=== PATIENT | male | born 1960 | race Two or more races ===

== ENCOUNTER 2018-08-29 05:39 | Day surgery (SDC) | payer OTHER ==
[~2018-08-29] VITALS: Ht 182.9 cm; Wt 97.5 kg
[2018-08-29] VITALS (10 sets, daily range): BP systolic 111–134; BP diastolic 56–90
[2018-08-29] MEDS ORDERED: oxyCONTIN 20mg tab ORAL ONE (06:00)
[2018-08-29] MEDS ORDERED: ceFAZolin 1gm IVPB IVPB ONE ×2 (06:00)
[2018-08-29] MEDS ORDERED: celeBREX 200mg Cap **SURGERY PATIENTS ONLY ORAL ONE (06:00)
[2018-08-29] MEDS ORDERED: Midazolam 2mg/2ml Inj ONE (07:43)
[2018-08-29] MEDS ORDERED: Lidocaine 1% MPF 10mg/ml 5ml ONE (07:43)
[2018-08-29] MEDS ORDERED: Ketorolac 30mg Inj ONE ×2 (07:43→08:19)
[2018-08-29] MEDS ORDERED: Propofol 200mg/20ml IV ONE (07:43)
[2018-08-29] MEDS ORDERED: fentaNYL 100 mcg/2 mL IV ONE (07:43)
[2018-08-29] MEDS ORDERED: METFORMIN HCL1000 M1 ORAL (07:54)
[2018-08-29] MEDS ORDERED: Jardiance PO (07:59)
[2018-08-29] MEDS ORDERED: BREO ELLIPTA 11 EACH IH (08:00)
[2018-08-29] MEDS ORDERED: GLIMEPIRIDE1 MG ORAL (08:00)
[2018-08-29] MEDS ORDERED: EPINEPHrine 1mg/1ml Amp ONE (08:18)
[2018-08-29] MEDS ORDERED: Morphine Sulfate PF 10 ML ONE (08:18)
[2018-08-29] MEDS ORDERED: Lidocaine 1% 10mg/ml/Epi 0.005mg/ml 30ml vial INJ ONE (08:19)
[2018-08-29] MEDS ORDERED: Kenalog-40 1ml Vial ONE (08:19)
[2018-08-29] MEDS ORDERED: Bupivacaine 0.25% Inj 30ml INJ ONE (08:19)
[2018-08-29] MEDS ORDERED: Sterile Water Irrig 1000ml IRRIG ONE (08:30)
[2018-08-29] MEDS ORDERED: NS Irrig 4000ml IRRIG ONE (08:30)
[2018-08-29] MEDS ORDERED: LR 1000ml ONE (08:30)
--- NOTE | 2018-08-29 08:35 | Pre-Procedure Note/Attestation ---
Pre-Procedure Note/Attestation Complete Prior to Procedure Planned Procedure: left Procedure Narrative: knee arthroscopy, medial menisectomy Indications for Procedure Pre-Operative Diagnosis: left knee medial meniscus tear Attestation I attest that I discussed the nature of the procedure; its benefits; risks and complications; and alternatives (and the risks and benefits of such alternatives ), prior to the procedure, with the patient (or the patient's legal medical representative). I attest that, if there was a reasonable possibility of needing a blood transfusion, the patient (or the patient's legal medical representative) was given the [facility] standardized written summary, pursuant to the [place] Blood Safety Act ([place] Health and Safety Code # 1645, as amended). I attest that I re-evaluated the patient just prior to the surgery and that there has been no change in the patient's H&P, except as documented below: Des Brown MD Aug 29, 2018 08:34
--- NOTE | 2018-08-29 08:35 | Operative Note - PDOC ---
Operative Note Operative Note Pre-op Diagnosis: left knee medial meniscus tear Procedure: see op report Post-op Diagnosis: same as pre-op plus Operative Findings: consistent w/pre-op dx studies Anesthesia: MAC Specimen: none Complications: none Condition: stable Estimated Blood Loss: none Implant(s) used?: No Des Brown MD Aug 29, 2018 08:35
[2018-08-29] MEDS ORDERED: Tylenol #3 tab (300mg/30mg) ORAL PRN (08:45)
[2018-08-29] MEDS ORDERED: D5 1/2NS 1,000 ML IV SCH (08:45)
[2018-08-29] MEDS ORDERED: Norco 5mg/325mg tab ORAL PRN (08:45)
[2018-08-29] MEDS ORDERED: HYDROmorphone 1mg/ml Carpuject SUBQ PRN (08:45)
[2018-08-29] MEDS ORDERED: LR 1000ml 1,000 ML IVLG SCH (08:59)
--- NOTE | 2018-08-29 08:59 | Anethesia Preoperative Eval ---
Anesthesia Pre-op PMH/ROS General Date of Evaluation: Aug 29, 2018 Time of Evaluation: 08:20 Anesthesiologist: Wilber ASA Score: ASA 2 Mallampati Score Class I : Soft palate, uvula, fauces, pillars visible Class II: Soft palate, uvula, fauces visible Class III: Soft palate, base of uvula visible Class IV: Only hard plate visible Mallampati Classification: Class II Surgeon: Kevin Diagnosis: L knee pain Surgical Procedure: L knee scope Anesthesia History: none Family History: no anesthesia problems Allergies: Coded Allergies: PENICILLINS (Verified Allergy, Intermediate, rash, 08/29/18) Patient NPO?: Yes Past Medical History Cardiovascular: Denies: HTN, CAD, [place], valve dz, arrhythmia, other Pulmonary: Reports: asthma - mild; Denies: COPD, KI, other Gastrointestinal/Genitourinary: Reports: GERD; Denies: CRI, ESRD, other Neurologic/Psychiatric: Denies: dementia, CVA, depression/anxiety, TIA, other Endocrine: Reports: DM - on pills; Denies: hypothyroidism, steroids, other HEENT: Denies: cataract (L), cataract (R), glaucoma, [place] (L), [place] (R), other Hematology/Immune: Denies: anemia, DVT, bleeding disorder, other Musculoskeletal/Integumentary: Denies: OA, RA, DJD, DDD, edema, other Other: other - overweight PMH Narrative: as above PSxH Narrative: T&A Anesthesia Pre-op Phys. Exam Physician Exam Last Vital Signs Date Time Temp Pulse Resp B/P (MAP) Pulse Ox O2 Delivery O2 Flow Rate FiO2 08/29/18 07:46 98.4 78 18 126/81 97 Room Air Constitutional: NAD Neurologic: CN 2-12 intact Cardiovascular: RRR, no M/R/G Respiratory: CTA Gastrointestinal: S/NT/ND Airway Exam Mallampati Score: Class II MO: full Neck: stiff ROM: limited Teeth: intact Dentures: no upper, no lower Anesthesia Pre-op A/P Labs see chart Accucheck 135 at admision Studies Pre-op Studies: EKG - SR Risk Assessment & Plan Assessment: ASA 2 Plan: GA with LMA Status Change Before Surgery: No Pre-Antibiotics Drug: Ancef 2gr. Given Within 1 Hr of Incision: Yes Time Given: 08:48 Vakulenko,Luis MD Aug 29, 2018 08:59
[2018-08-29] MEDS ORDERED: DiphenhydrAMINE 50mg/ml Inj IVP PRN (09:00)
[2018-08-29] MEDS ORDERED: Ketorolac 30mg Inj IV PRN (09:00)
[2018-08-29] MEDS ORDERED: Meperidine 50mg/ml Inj(FOR RIGORS ONLY) IV PRN (09:00)
--- NOTE | 2018-08-29 09:28 | Immediate Post-Op Evaluation ---
Immediate Post-Op Evalulation Immediate Post-Op Evalulation Procedure: L knee arthroscopy meniscectomy Date of Evaluation: Aug 29, 2018 Time of Evaluation: 09:27 IV Fluids: 700 Blood Products: none Estimated Blood Loss: min Urinary Output: none Blood Pressure Systolic: 116 Blood Pressure Diastolic: 82 Pulse Rate: 76 Respiratory Rate: 20 O2 Sat by Pulse Oximetry: 98 Temperature (Fahrenheit): 97.8 Pain Score (1-10): 1 Nausea: No Vomiting: No Complications none Patient Status: reacts, patent, none Hydration Status: adequate Luis Aguilar MD Aug 29, 2018 09:28
--- NOTE | 2018-08-29 13:07 | 48 Hour Post Anesthesia Eval ---
Post Anesthesia Evaluation Procedure: L knee arthroscopy meniscectomy Date of Evaluation: Aug 29, 2018 Time of Evaluation: 13:05 Blood Pressure Systolic: 132 0: 56 Pulse Rate: 68 Respiratory Rate: 22 Temperature (Fahrenheit): 97.6 O2 Sat by Pulse Oximetry: 98 Airway: patent Nausea: No Vomiting: No Pain Intensity: 1 Hydration Status: adequate Cardiopulmonary Status: stable Mental Status/LOC: patient returned to baseline Follow-up Care/Observations: n/a Post-Anesthesia Complications: none Follow-up care needed: ready to discharge Luis Aguilar MD Aug 29, 2018 13:07
--- NOTE | 2018-08-29 16:30 | Operative Note - Dictated ---
DATE OF OPERATION: 08/29/2018 PREOPERATIVE DIAGNOSES: 1. Status post closed treatment left tibial spine fracture. 2. Posterior horn medial meniscus tear. 3. Hypertrophic fat pad/synovial tissue medial lateral patellofemoral compartment. POSTOPERATIVE DIAGNOSES: 1. Status post closed treatment left tibial spine fracture. 2. Posterior horn medial meniscus tear. 3. Hypertrophic fat pad/synovial tissue medial lateral patellofemoral compartment. 4. Grade 2 chondral damage medial femoral condyle. 5. Grade 2 chondral damage medial tibial plateau. 6. Lateral plateau, posterior plateau chondral damage. Procedure: 1. Left knee diagnostic arthroscopy, partial medial menisectomy 2. Left knee tricompartmental synovectomy/Excision of fat pad 3. Left knee chondraplasty medial compartment SURGEON: Des Brown M.D. ANESTHESIA: MAC. INDICATION FOR PROCEDURE: The patient is a pleasant gentleman, who had a tibial spine fracture. The patient subsequently was treated with conservative treatment. After rehabbing, he had pain, discomfort. He had an MRI showed a meniscal tear. Failed conservative treatment. Still has significant discomfort and pain. Therefore elected to undergo left knee diagnostic arthroscopy, possible synovectomy, meniscectomy, chondroplasty. Risks, limitations, expectations, complications of procedure were discussed in detail. All questions addressed. DESCRIPTION OF PROCEDURE: After informed consent was obtained, the patient was brought to the operating room. The patient was placed under general anesthesia. Tourniquet was applied to left proximal thigh. Left leg was prepped and draped in a sterile manner. Time-out was performed. 0.25% Marcaine injected in the knee. 1 lidocaine was injected in the the portals. Inferolateral stab incision was then made. Trocar was introduced into the knee joint. There is hypertrophic fat pad in the retropatellar space area making visualization somewhat difficult. Medial gutter was entered free of any loose bodies. Medial compartment was entered. There was grade 2 chondral damage in the medial tibial plateau. Hypertrophic fat pad and synovial tissue in the anterior compartment making visualization difficult. Therefore, synovectomy and incision of fat pad in the medial compartment, intercondylar notch, and lateral compartment was performed to better visualize the internal structures. Medial compartment was then entered. There appeared to be fraying or horizontal tear on the periphery of the posterior horn extending to the body of the meniscus. The superior flap was intact. The shaver was then placed into this area to roughen up and debride the remnants of the tear. Once that was done, the ACL was probed. It appeared that the area where the a tibial spine fracture had healed was completely healed. There was cyclops lesion and hypertrophic ligamentum mucosum in the intercondylar notch that was debrided. There was no evidence of impingement. Lateral compartment was entered. No meniscal damage or there was a 4 mm defect in the posterolateral tibial plateau area. The camera was then positioned in the patellofemoral compartment. Excision of the fat pad synovectomy was completed. This allowed better visualization of the medial condyle, which showed grade 2 chondral damage. Once that was completed, all instruments removed. Portal sites were closed with 3-0 Monocryl sutures. Steri-Strips and a sterile dressing were applied. The patient was awoken and taken to recovery room with stable vital signs. ESTIMATED BLOOD LOSS: None. COMPLICATIONS: None. SPECIMENS: None. IMPLANTS: None. Des Brown M.D. DR: [place] JOB#: [id number] CC: ERIC
== END 2018-08-29 10:55 | disposition home or self-care (01) ==
LOC: SUR 05:39
DX: M23.222 Derangement of posterior horn of medial meniscus due to old tear or injury, left knee (principal); M79.4 Hypertrophy of (infrapatellar) fat pad; M67.262 Synovial hypertrophy, not elsewhere classified, left lower leg; M94.9 Disorder of cartilage, unspecified; E11.9 Type 2 diabetes mellitus without complications; Z79.84 Long term (current) use of oral hypoglycemic drugs; J45.909 Unspecified asthma, uncomplicated; K21.9 Gastro-esophageal reflux disease without esophagitis; E66.3 Overweight; Z68.31 Body mass index [BMI] 31.0-31.9, adult; Z88.0 Allergy status to penicillin
CPT/HCPCS: 29876; 29881; 82962; J0171; J0690; J1885; J2250; J2274; J2704; J3010; J3301; J3490; 94003; 94150